=== PATIENT | female | born 1995 | race Hispanic/Latino ===

== ENCOUNTER 2019-04-11 15:55 | Emergency (ER) | payer SELFPAY ==
--- NOTE | 2019-04-11 18:25 | Event Note ---
ED Screening Note Date of service: 04/11/19 Time: 18:25 ED Screening Note: 23 y o pilonidal abscess This initial assessment/diagnostic orders/clinical plan/treatment(s) is/are subject to change based on patients health status, clinical progression and re- assessment by fellow clinical providers in the ED. Further treatment and workup at subsequent clinical providers discretion. Patient/guardian urged not to elope from the ED as their condition may be serious if not clinically assessed and managed. Initial orders include: acc ID
[2019-04-11] MEDS ORDERED: IBUPROFEN 600 MG TAB PO ONE (19:53)
[2019-04-11] MEDS ORDERED: oxyCODONE /ACETAMINOPHEN 5-325MG TAB PO ONE (19:53)
[2019-04-11] MEDS ORDERED: ONDANSETRON 4 MG ODT TAB PO ONE (19:53)
[2019-04-11] MEDS ORDERED: CLINDAMYCIN 300 MG CAP PO ONE (19:53)
[2019-04-11] MEDS ORDERED: SULFAMETHOXAZOLE/TRIMETHOPRIM 800/160MG DS TAB PO ONE (19:53)
[2019-04-11] MEDS ORDERED: LIDOCAINE-MPF (1%) 10 MG/1 ML VIAL 5 ML INFILTRATI ONE (19:54)
--- NOTE | 2019-04-11 20:47 | Emergency Department Report ---
ED General Adult HPI - General Chief complaint: Skin/Abscess/Foreign Body Stated complaint: BOIL Source: patient Mode of arrival: Ambulatory Limitations: No Limitations - History of Present Illness Initial comments: Patient is a 23-year-old morbidly obese white female with history of recurrent pilonidal cyst abscess is presents to the ED with complaint of acute onset persistent painful swelling erythematous maculopapular flexion and rash on pilonidal area for the last 1 week. Patient denies fever, chills, nausea, vomiting, dizziness, numbness and tingling or weakness of lower extremities bilaterally, urinary or bowel incontinence or saddle paresthesia. MD Complaint: abscess; cellulitis of pilonidal area -: Sudden, week(s) (1) Location: buttocks Radiation: non-radiation Severity scale (0 -10): 8 Quality: aching, sharp Consistency: constant Improves with: none Worsens with: none Associated Symptoms: denies other symptoms, loss of appetite, malaise, rash (swollen erythematous maculopapular rash on pilonidal area). denies: confusion, cough, diaphoresis, fever/chills, headaches, nausea/vomiting, seizure, shortness of breath, syncope, weakness, other Treatments Prior to Arrival: none - Related Data Previous Rx's Medication Instructions Recorded Last Taken Type Acetaminophen/Codeine [Tylenol 1 tab PO Q6H PRN #12 tab 04/11/19 Unknown Rx /Codeine # 3 tab] Clindamycin [Clindamycin CAP] 300 mg PO Q8HR #60 capsule 04/11/19 Unknown Rx Ibuprofen [Motrin] 800 mg PO Q8HR PRN #24 tablet 04/11/19 Unknown Rx Ondansetron [Zofran Odt] 4 mg PO Q6HR PRN #15 tab.rapdis 04/11/19 Unknown Rx Sulfamethoxazole/Trimethoprim 1 each PO Q12H #20 tablet 04/11/19 Unknown Rx [Bactrim DS TAB] Allergies Allergy/AdvReac Type Severity Reaction Status Date / Time No Known Allergies Allergy Unverified 04/11/19 16:02 ED Review of Systems ROS: Stated complaint: BOIL Other details as noted in HPI Constitutional: denies: chills, fever Eyes: denies: eye pain, eye discharge, vision change ENT: denies: ear pain, throat pain Respiratory: denies: cough, shortness of breath, wheezing Cardiovascular: denies: chest pain, palpitations Endocrine: no symptoms reported Gastrointestinal: denies: abdominal pain, nausea, diarrhea Genitourinary: denies: urgency, dysuria, discharge Musculoskeletal: denies: back pain, joint swelling, arthralgia Skin: rash, change in color, other (swollen, painful fluctuant erythematous maculopapular rash on pilonidal area). denies: lesions Neurological: denies: headache, weakness, paresthesias Psychiatric: denies: anxiety, depression Hematological/Lymphatic: denies: easy bleeding, easy bruising ED Past Medical Hx - Past Medical History Previous Medical History?: No - Surgical History Past Surgical History?: No - Medications Home Medications: Home Medications Medication Instructions Recorded Confirmed Last Taken Type Acetaminophen/Codeine [Tylenol 1 tab PO Q6H PRN #12 tab 04/11/19 Unknown Rx /Codeine # 3 tab] Clindamycin [Clindamycin CAP] 300 mg PO Q8HR #60 capsule 04/11/19 Unknown Rx Ibuprofen [Motrin] 800 mg PO Q8HR PRN #24 tablet 04/11/19 Unknown Rx Ondansetron [Zofran Odt] 4 mg PO Q6HR PRN #15 tab.rapdis 04/11/19 Unknown Rx Sulfamethoxazole/Trimethoprim 1 each PO Q12H #20 tablet 04/11/19 Unknown Rx [Bactrim DS TAB] ED Physical Exam - General Limitations: No Limitations General appearance: alert, in no apparent distress - Head Head exam: Present: atraumatic, normocephalic, normal inspection - Eye Eye exam: Present: normal appearance, PERRL, EOMI - ENT ENT exam: Present: normal exam, normal orophraynx, mucous membranes moist, TM's normal bilaterally, normal external ear exam - Neck Neck exam: Present: normal inspection, full ROM. Absent: tenderness, meningismus, lymphadenopathy, thyromegaly - Respiratory Respiratory exam: Present: normal lung sounds bilaterally. Absent: respiratory distress, wheezes, rales, rhonchi, chest wall tenderness, decreased breath sounds - Cardiovascular Cardiovascular Exam: Present: regular rate, normal rhythm, normal heart sounds. Absent: systolic murmur, diastolic murmur, rubs, gallop - GI/Abdominal GI/Abdominal exam: Present: soft, normal bowel sounds. Absent: tenderness, guarding, rebound, hyperactive bowel sounds, hypoactive bowel sounds, organomegaly - Extremities Exam Extremities exam: Present: normal inspection, full ROM, normal capillary refill. Absent: tenderness, pedal edema, joint swelling - Back Exam Back exam: Present: normal inspection, full ROM. Absent: tenderness, CVA tenderness (R), muscle spasm, paraspinal tenderness, vertebral tenderness - Neurological Exam Neurological exam: Present: alert, oriented X3, CN II-XII intact, normal gait, reflexes normal - Psychiatric Psychiatric exam: Present: normal affect, normal mood - Skin Skin exam: Present: warm, dry, intact, rash, erythema, other (swollen, severely tender fluctuant erythematous maculopapular rash on pilonidal area with purulent malodorous discharge) ED Course Vital Signs 04/11/19 20:05 Respiratory 18 Rate - I & D Buttocks Type of Procedure: Simple Site: Midline pilonidal area Blade Size: 11 I & D Procedure: betadine prep, sterile drapes applied, sterile dressing applied Progress: Patient tolerated the procedure well and was discharged home on medications including antibiotics and pain medications and was advised to follow-up with her primary care physician in 7-10 days for reevaluation or return to the ED immediately if symptoms get worse. Patient was also advised to return to the ED or to her primary care physician in 2 days for wound recheck and packing removal. ED Medical Decision Making - Medical Decision Making This is a 23-year-old morbidly obese white female who presented to the ED with painful swelling erythematous maculopapular rash with fluctuance on the pilonidal area for the last 1 week. In the ED, patient is alert and oriented 3 and is not in distress but appears to be in pain. Patient was treated for pain and also given oral antibiotics in the ED. The swelling fluctuant maculopapular rash was incised and drained per protocol and the patient tolerated the procedure well. The wound was thereafter packed with iodoform gauze and dressed appropriately. Patient was discharged home on pain medications and oral antibiotics and advised follow-up with her primary care physician in 7-10 days for reevaluation or return to the ED immediately if symptoms get worse. Patient was advised to return to the ED or to her primary care physician in 2 days for wound recheck and packing removal. - Differential Diagnosis cellulitis; abscess of pilonidal cyst; folliculitis Critical care attestation.: If time is entered above; I have spent that time in minutes in the direct care of this critically ill patient, excluding procedure time. ED Disposition Clinical Impression: Pilonidal abscess of cleft, Cellulitis of buttock, Abscess of buttock Disposition: TO HOME OR SELFCARE Is pt being admited?: No Does the pt Need Aspirin: No Condition: Stable Instructions: Cellulitis (ED), Abscess Incision and Drainage (ED), Abscess (ED) Additional Instructions: Take medications with food, drink plenty of fluids and follow-up with the primary care physician E7 to 10 days for reevaluation. Return to the ED or to his primary care physician for wound recheck and packing removal in 2 days. Otherwise return to the ED immediately if symptoms get worse. Prescriptions: Sulfamethoxazole/Trimethoprim [Bactrim DS TAB] 1 each PO Q12H #20 tablet Clindamycin [Clindamycin CAP] 300 mg PO Q8HR #60 capsule Ibuprofen [Motrin] 800 mg PO Q8HR PRN #24 tablet PRN Reason: Pain , Severe (7-10) Acetaminophen/Codeine [Tylenol /Codeine # 3 tab] 1 tab PO Q6H PRN #12 tab PRN Reason: Pain , Severe (7-10) Ondansetron [Zofran Odt] 4 mg PO Q6HR PRN #15 tab.rapdis PRN Reason: Nausea Referrals: PRIMARY CARE, [Referring] - 3-5 Days Time of Disposition: 20:45 Print Language: PANAMANIAN
[2019-04-11 21:06] VITALS: BP 146/84
== END 2019-04-11 21:05 | disposition home or self-care (01) ==
LOC: ED 15:55
DX: L05.01 Pilonidal cyst with abscess (principal); L03.317 Cellulitis of buttock; Z79.899 Other long term (current) drug therapy
CPT/HCPCS: Q0162